=== PATIENT | female | born 1995 | race Caucasian/White ===

== ENCOUNTER 2018-01-03 00:26 | Inpatient (IN) | payer MEDICAID ==
[2018-01-03] MEDS ORDERED: Misoprostol 25 MCG (1/4 of 100 MCG) Tab PO PRN (00:37)
[2018-01-03] MEDS ORDERED: Water For Irrigation,Sterile 1,000 ML Container IRR PRN (00:37)
[2018-01-03] MEDS ORDERED: Sodium Chloride 0.9% 2.5 ML Syringe FLUSH PRN (00:37)
[2018-01-03] MEDS ORDERED: Terbutaline 1 MG/ML SDV SUBCUT PRN (00:37)
[2018-01-03] MEDS ORDERED: Lidocaine 1% 50 ML MDV INJECT PRN (00:37)
[2018-01-03] MEDS ORDERED: Tranexamic Acid 1,000 MG in Sodium Chloride 0.9% 100 ML IV PRN (00:37)
[2018-01-03] MEDS ORDERED: Sodium Chloride 0.9% 10 ML Syringe FLUSH PRN (00:37)
[2018-01-03] MEDS ORDERED: Misoprostol 25 MCG (1/4 of 100 MCG) Tab VAG PRN (00:37)
[2018-01-03] MEDS ORDERED: Methylergonovine 0.2 MG/1 ML Amp IM PRN (00:37)
[2018-01-03] MEDS ORDERED: Nalbuphine 10 MG/1 ML Vial IVPUSH PRN (00:37)
[2018-01-03] MEDS ORDERED: Misoprostol 200 MCG Tab PO PRN (00:37)
[2018-01-03] MEDS ORDERED: Carboprost Tromethamine 250 MCG/1 ML Amp IM PRN (00:37)
[2018-01-03] MEDS ORDERED: hydrOXYzine Pamoate 25 MG Cap PO PRN (00:43)
[2018-01-03] MEDS ORDERED: Oxytocin/0.9 % Sodium Chloride 30 UNIT/500 ML BAG IV SCH ×2 (00:45)
--- NOTE | 2018-01-03 00:56 | PCM.LDHP ---
L&D History of Present Illness - General Date of Service: 01/03/18 Admit Problem/Dx: Patient Status Order with Admit Dx/Problem 01/03/18 00:37 Patient Status [ADT] Routine Admission Diagnosis/Problem Admission Diagnosis/Problem Source of Information: Patient History Limitations: Reports: No Limitations - History of Present Illness Improves with: Reports: None Worsens with: Reports: None Associated Symptoms: Reports: N H&P Review of Systems - Review of Systems: Review Of Systems: See Below General: Reports: No Symptoms HEENT: Reports: No Symptoms Pulmonary: Reports: No Symptoms Cardiovascular: Reports: No Symptoms Gastrointestinal: Reports: No Symptoms Genitourinary: Reports: No Symptoms Musculoskeletal: Reports: No Symptoms Skin: Reports: No Symptoms Psychiatric: Reports: No Symptoms Neurological: Reports: No Symptoms Hematologic/Lymphatic: Reports: No Symptoms Immunologic: Reports: No Symptoms L&D Exam - Exam Exam: See Below - Vital Signs Weight: 79.379 kg - OB Specific Fundal Height In cm: 39 Contraction Intensity: Mild Movement: Active Heart Tones: Present Presentation: Vertex - Bianchi Score Bianchi Score Cervix Position: Midposition Bianchi Score Consistency: Medium Bianchi Score Effacement: 51-70% Bianchi Score Dilation: 1-2 cm Bianchi Score Infant's Station: -2 Bianchi Score Total: 6 - Exam General: Alert, Oriented HEENT: PERRLA, Conjunctiva Clear, EACs Clear, EOMI, Hearing Intact, Mucosa Moist & [place], Nares Patent, Normal Nasal Septum, Posterior Pharynx Clear, TMs Clear Neck: Supple, Trachea Midline Lungs: Clear to Auscultation, Normal Respiratory Effort Cardiovascular: Regular Rate, Regular Rhythm GI/Abdominal Exam: Normal Bowel Sounds, Soft, Non-Tender, No Organomegaly, No Distention, No Abnormal Bruit, No Mass, Pelvis Stable Rectal Exam: Normal Exam, Normal Rectal Tone Genitourinary: Normal external exam, Normal bimanual exam, Normal speculum exam Back Exam: Normal Inspection, Full Range of Motion Extremities: Normal Inspection, Normal Range of Motion, Non-Tender, No Pedal Edema, Normal Capillary Refill Skin: Warm, Dry, Intact Neurological: Cranial Nerves Intact, Reflexes Equal Bilateral Psychiatric: Alert, Normal Affect, Normal Mood Problem List Initiated/Reviewed/Updated: Yes Orders Last 24hrs: Active Orders 24 hr Category Date Time Status Patient Status [ADT] Routine ADT 01/03/18 00:37 Active Bedrest Bathroom Privileges [RC] ASDIRECTED Care 01/03/18 00:37 Active Communication Order [RC] ASDIRECTED Care 01/03/18 00:37 Active Communication Order [RC] ASDIRECTED Care 01/03/18 00:37 Active Communication Order [RC] ASDIRECTED Care 01/03/18 00:37 Active Heart Tones [RC] CONTINUOUS Care 01/03/18 00:37 Active Non Stress Test [RC] PER UNIT ROUTINE Care 01/03/18 00:37 Active May Shower [RC] ASDIRECTED Care 01/03/18 00:37 Active Notify Provider [RC] PRN Care 01/03/18 00:37 Active Notify Provider [RC] PRN Care 01/03/18 00:37 Active Notify Provider [RC] PRN Care 01/03/18 00:37 Active Notify Provider [RC] STAT Care 01/03/18 00:37 Active Oxygen Therapy [RC] ASDIRECTED Care 01/03/18 00:37 Active Up ad Milena [RC] ASDIRECTED Care 01/03/18 00:37 Active Vaginal Exam [RC] PRN Care 01/03/18 00:37 Active Vaginal Exam [RC] PRN Care 01/03/18 00:37 Active Vital Signs [RC] PER UNIT ROUTINE Care 01/03/18 00:37 Active Vital Signs [RC] PER UNIT ROUTINE Care 01/03/18 00:37 Active Regular Diet [DIET] Diet 01/03/18 Breakfast Active CBC W/O DIFF,HEMOGRAM [HEME] Routine Lab 01/03/18 00:37 Ordered TYPE AND SCREEN [BBK] Routine Lab 01/03/18 00:37 Ordered Carboprost Tromethamine [Hemabate DS] Med 01/03/18 00:37 Active 250 mcg IM ASDIRECTED PRN Lactated Ringers [Ringers, Lactated] 1,000 ml Med 01/03/18 00:45 Active IV ASDIRECTED Lidocaine 1% [Xylocaine 1%] Med 01/03/18 00:37 Active 50 ml INJECT .ONCE PRN Methylergonovine [Methergine] Med 01/03/18 00:37 Active 0.2 mg IM ASDIRECTED PRN Misoprostol [Cytotec] Med 01/03/18 00:37 Active 200 mcg PO .ONCE PRN Misoprostol [Cytotec] Med 01/03/18 00:37 Active 25 mcg PO Q4H PRN Misoprostol [Cytotec] Med 01/03/18 00:37 Active 25 mcg VAG Q4H PRN Nalbuphine [Nubain] Med 01/03/18 00:37 Active 10 mg IVPUSH ASDIRECTED PRN Oxytocin/0.9 % Sodium Chloride [Oxytocin 30 Unit/500 ML Med 01/03/18 00:45 Active -NS] 30 unit in 500 ml IV ASDIRECTED Oxytocin/0.9 % Sodium Chloride [Oxytocin 30 Unit/500 ML Med 01/03/18 00:45 Active -NS] 30 unit in 500 ml IV TITRATE Sodium Chloride 0.9% [Saline Flush] Med 01/03/18 00:37 Active 10 ml FLUSH ASDIRECTED PRN Sodium Chloride 0.9% [Saline Flush] Med 01/03/18 00:37 Active 2.5 ml FLUSH ASDIRECTED PRN Terbutaline [Brethine] Med 01/03/18 00:37 Active 0.25 mg SUBCUT ASDIRECTED PRN Tranexamic Acid [Cyklokapron] 1,000 mg Med 01/03/18 00:37 Active Sodium Chloride 0.9% [Normal Saline] 100 ml IV ONETIME Water For Irrigation,Sterile [Sterile Water for Med 01/03/18 00:37 Active Irrigation] 1,000 ml IRR ASDIRECTED PRN hydrOXYzine Pamoate [Vistaril] Med 01/03/18 00:43 Active 50 mg PO BEDTIME PRN Scalp Electrode [WOMSER] Per Unit Routine Oth 01/03/18 00:37 Ordered Medication Administration Instruction [OM.PC] Q3H Oth 01/03/18 00:45 Ordered Peripheral IV Insertion Adult [OM.PC] Routine Oth 01/03/18 00:37 Ordered Resuscitation Status Routine Resus Stat 01/03/18 00:37 Ordered Medication Orders Carboprost Tromethamine (Hemabate Ds) 250 mcg IM ASDIRECTED PRN PRN Reason: Post Hemorrhage Hydroxyzine Pamoate (Vistaril) 50 mg PO BEDTIME PRN PRN Reason: Sleep Lactated Ringer's (Ringers, Lactated) 1,000 mls @ 150 mls/hr IV ASDIRECTED JULIANA Oxytocin/Sodium Chloride (Oxytocin 30 Unit/500 Ml-Ns) 30 unit in 500 mls @ 999 mls/hr IV ASDIRECTED JULIANA Oxytocin/Sodium Chloride (Oxytocin 30 Unit/500 Ml-Ns) 30 unit in 500 mls @ 2 mls/hr IV TITRATE JULIANA; 2 MUNITS/MIN PRN Reason: Protocol Tranexamic Acid 1,000 mg/ (Sodium Chloride) 110 mls @ 600 mls/hr IV ONETIME PRN PRN Reason: Bleeding Lidocaine HCl (Xylocaine 1%) 50 ml INJECT .ONCE PRN PRN Reason: Laceration repair Methylergonovine Maleate (Methergine) 0.2 mg IM ASDIRECTED PRN PRN Reason: Post Hemorrhage Misoprostol (Cytotec) 200 mcg PO .ONCE PRN PRN Reason: Post Hemorrhage Misoprostol (Cytotec) 25 mcg VAG Q4H PRN PRN Reason: Cervical Ripening Misoprostol (Cytotec) 25 mcg PO Q4H PRN PRN Reason: Cervical Ripening Nalbuphine HCl (Nubain) 10 mg IVPUSH ASDIRECTED PRN PRN Reason: Pain (severe 7-10) Sodium Chloride (Saline Flush) 10 ml FLUSH ASDIRECTED PRN PRN Reason: Keep Vein Open Sodium Chloride (Saline Flush) 2.5 ml FLUSH ASDIRECTED PRN PRN Reason: Keep Vein Open Sterile Water (Sterile Water For Irrigation) 1,000 ml IRR ASDIRECTED PRN PRN Reason: delivery Terbutaline Sulfate (Brethine) 0.25 mg SUBCUT ASDIRECTED PRN PRN Reason: Tacysystole Assessment/Plan Comment:: Term admitted for elective induction.
[2018-01-03] MEDS: Lactated Ringers 1,000 ML IV SCH ×2 (09:48→10:41)
[2018-01-03] MEDS ORDERED: fentaNYL 100 MCG/2 ML SDV ONE (10:12)
--- NOTE | 2018-01-03 10:41 | PCM.PREANE ---
Preanesthetic Assessment - Anesthesia/Transfusion/Family Hx Anesthesia History: Prior Anesthesia Without Reaction Transfusion History: No Prior Transfusion(s) - Review of Systems General: No Symptoms Pulmonary: No Symptoms Cardiovascular: No Symptoms Gastrointestinal: No Symptoms Neurological: No Symptoms Other: Reports: None - Physical Assessment NPO Status Date: 01/03/18 NPO Status Time: 10:39 (sips/chips) Height: 5 ft 4 in Weight: 175 lb ASA Class: 2 Mental Status: Alert & Oriented x3 Airway Class: Mallampati = 2 Dentition: Reports: Normal Dentition ROM/Head Extension: Full Lungs: Clear to Auscultation, Normal Respiratory Effort Cardiovascular: Regular Rate, Regular Rhythm - Lab Values: Laboratory Last Values WBC 10.37 K/uL (4.0-11.0) 01/03/18 01:17 RBC 4.00 M/uL (4.30-5.90) L 01/03/18 01:17 Hgb 10.6 g/dL (12.0-16.0) L 01/03/18 01:17 Hct 31.9 % (36.0-46.0) L 01/03/18 01:17 MCV 79.8 fL (80.0-98.0) L 01/03/18 01:17 MCH 26.5 pg (27.0-32.0) L 01/03/18 01:17 MCHC 33.2 g/dL (31.0-37.0) 01/03/18 01:17 RDW Std Deviation 39.3 fl (28.0-62.0) 01/03/18 01:17 RDW Coeff of Manjeet 14 % (11.0-15.0) 01/03/18 01:17 Plt Count 255 K/uL (150-400) 01/03/18 01:17 MPV 10.60 fL (7.40-12.00) 01/03/18 01:17 Blood Type A POSITIVE 01/03/18 01:17 Antibody Screen NEGATIVE 01/03/18 01:17 - Allergies Allergies/Adverse Reactions: Allergies Allergy/AdvReac Type Severity Reaction Status Date / Time No Known Allergies Allergy Verified 01/03/18 01:55 - Blood Blood Available: No Product(s) Available: None - Anesthesia Plan Free Text/Narrative:: Labor Epidural - Acknowledgements Anesthesia Type Planned: Epidural Pt an Appropriate Candidate for the Planned Anesthesia: Yes Alternatives and Risks of Anesthesia Discussed w Pt/Guardian: Yes Pt/Guardian Understands and Agrees with Anesthesia Plan: Yes PreAnesthesia 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: , Spontaneous Musculoskeletal History: Reports: Other (See Below) (pt states some scoliosis - despite pt being small, her epidural space was rather deep (7cm)) - SUBSTANCE USE Smoking Status *Q: Former Smoker Tobacco Use Within Last Twelve Months: No Second Hand Smoke Exposure: No Recreational Drug Use History: No - CURRENT (IN HOUSE) MEDS Current Meds: Current Medications Carboprost Tromethamine (Hemabate Ds) 250 mcg IM ASDIRECTED PRN PRN Reason: Post Hemorrhage Hydroxyzine Pamoate (Vistaril) 50 mg PO BEDTIME PRN PRN Reason: Sleep Lactated Ringer's (Ringers, Lactated) 1,000 mls @ 150 mls/hr IV ASDIRECTED JULIANA Last Admin: 01/03/18 09:48 Dose: 999 mls/hr Oxytocin/Sodium Chloride (Oxytocin 30 Unit/500 Ml-Ns) 30 unit in 500 mls @ 999 mls/hr IV ASDIRECTED JULIANA Oxytocin/Sodium Chloride (Oxytocin 30 Unit/500 Ml-Ns) 30 unit in 500 mls @ 2 mls/hr IV TITRATE JULIANA; 2 MUNITS/MIN PRN Reason: Protocol Tranexamic Acid 1,000 mg/ (Sodium Chloride) 110 mls @ 600 mls/hr IV ONETIME PRN PRN Reason: Bleeding Lidocaine HCl (Xylocaine 1%) 50 ml INJECT .ONCE PRN PRN Reason: Laceration repair Methylergonovine Maleate (Methergine) 0.2 mg IM ASDIRECTED PRN PRN Reason: Post Hemorrhage Misoprostol (Cytotec) 200 mcg PO .ONCE PRN PRN Reason: Post Hemorrhage Misoprostol (Cytotec) 25 mcg VAG Q4H PRN PRN Reason: Cervical Ripening Last Admin: 01/03/18 01:55 Dose: 25 mcg Misoprostol (Cytotec) 25 mcg PO Q4H PRN PRN Reason: Cervical Ripening Last Admin: 01/03/18 01:56 Dose: 25 mcg Nalbuphine HCl (Nubain) 10 mg IVPUSH ASDIRECTED PRN PRN Reason: Pain (severe 7-10) Sodium Chloride (Saline Flush) 10 ml FLUSH ASDIRECTED PRN PRN Reason: Keep Vein Open Sodium Chloride (Saline Flush) 2.5 ml FLUSH ASDIRECTED PRN PRN Reason: Keep Vein Open Sterile Water (Sterile Water For Irrigation) 1,000 ml IRR ASDIRECTED PRN PRN Reason: delivery Terbutaline Sulfate (Brethine) 0.25 mg SUBCUT ASDIRECTED PRN PRN Reason: Tacysystole Discontinued Medications Fentanyl (Sublimaze) Confirm Administered Dose 100 mcg .ROUTE .STK-MED ONE Stop: 01/03/18 10:13 Fentanyl/Bupivacaine HCl (Bfongajf-Ekozi-Mf 2 Mcg/Ml-0.125%) Confirm Administered Dose 100 mls @ as directed EP .STK-MED ONE Stop: 01/03/18 10:13
[2018-01-03] MEDS ORDERED: Ibuprofen 400 MG Tab PO PRN (15:16)
[2018-01-03] MEDS ORDERED: Witch Hazel Medicated Pads 40/Jar TOP PRN (15:16)
[2018-01-03] MEDS ORDERED: Docusate Sodium 100 MG Cap PO PRN (15:16)
[2018-01-03] MEDS ORDERED: oxyCODONE 5 MG Tab PO PRN (15:16)
[2018-01-03] MEDS ORDERED: Benzocaine/Menthol 20%-0.5% Spray 78 GM Cannister TOP PRN (15:16)
[2018-01-03] MEDS ORDERED: Lanolin 100% Cream 7 GM Tube TOP PRN (15:16)
[2018-01-03] MEDS ORDERED: Bisacodyl 10 MG Supp RECTAL PRN (15:16)
[2018-01-03] MEDS ORDERED: Acetaminophen 500 MG Tab PO PRN ×2 (15:16)
--- NOTE | 2018-01-03 17:11 | PCM.DEL ---
L & D Note - General Info Date of Service: 01/03/18 Mother's Due Date: 12/30/17 - Delivery Note Cervical Ripening Method: Misoprostil Delivery Outcome: Livebirth Delivery Method: Spontaneous Vaginal Delivery-Single Delivery Mode: Spontaneous Presentation: Vertex Nuchal Cord: None Anesthesia Type: Epidural Amniotic Fluid Description: Meconium Stained Episiotomy Type: None Laceration: None Placenta: Intact, Spontaneous Cord: 3 Vessels Estimated Blood Loss: 100 Resuscitation Needed: No Score 1 min: 9 Score 5 min: 9 Second Stage Interventions: Reports: Pushing Effectively, Pushing, Pulls Own Legs Back Induction Criteria - Induction Gestational Age >/= 39 wks: Yes Estimated Pelvis: Reports: Adequate Reassuring Monitoring Strip: Yes Absence of Tachy Systole: Yes - General Info Admission Dx/Problem (Free Text): Patient Status Order with Admit Dx/Problem 01/03/18 00:37 Patient Status [ADT] Routine Admission Diagnosis/Problem Admission Diagnosis/Problem Functional Status: Reports: Pain Controlled, Tolerating Diet - Review of Systems General: Reports: No Symptoms HEENT: Reports: No Symptoms Pulmonary: Reports: No Symptoms Cardiovascular: Reports: No Symptoms Gastrointestinal: Reports: No Symptoms Genitourinary: Reports: No Symptoms Musculoskeletal: Reports: No Symptoms Skin: Reports: No Symptoms Neurological: Reports: No Symptoms Psychiatric: Reports: No Symptoms - Patient Data Weight - Most Recent: 79.379 kg Lab Results Last 24 Hours: Laboratory Results - last 24 hr 01/03/18 01/03/18 Range/Units 01:17 01:17 WBC 10.37 (4.0-11.0) K/uL RBC 4.00 L (4.30-5.90) M/uL Hgb 10.6 L (12.0-16.0) g/dL Hct 31.9 L (36.0-46.0) % MCV 79.8 L (80.0-98.0) fL MCH 26.5 L (27.0-32.0) pg MCHC 33.2 (31.0-37.0) g/dL RDW Std Deviation 39.3 (28.0-62.0) fl RDW Coeff of Manjeet 14 (11.0-15.0) % Plt Count 255 (150-400) K/uL MPV 10.60 (7.40-12.00) fL Blood Type A POSITIVE Antibody Screen NEGATIVE Med Orders - Current: Current Medications Acetaminophen (Tylenol Extra Strength) 500 mg PO Q4H PRN PRN Reason: Pain Acetaminophen (Tylenol Extra Strength) 1,000 mg PO Q4H PRN PRN Reason: Pain Benzocaine/Menthol (Dermoplast Pain Relief 20%-0.5% Bailey) 78 gm TOP ASDIRECTED PRN PRN Reason: Perineal Comfort Measure Bisacodyl (Dulcolax) 10 mg RECTAL .ONCE PRN PRN Reason: Constipation Docusate Sodium (Colace) 100 mg PO BID PRN PRN Reason: Constipation Emollient Ointment (Lansinoh Hpa) 0 gm TOP ASDIRECTED PRN PRN Reason: Sore Nipples Ibuprofen (Motrin) 400 mg PO Q4H PRN PRN Reason: Pain Ibuprofen (Motrin) 800 mg PO Q6H PRN PRN Reason: Pain Oxycodone HCl (Oxycodone) 5 mg PO Q2H PRN PRN Reason: Pain Witch Bianka (Tucks) 1 pad TOP ASDIRECTED PRN PRN Reason: comfort care Discontinued Medications Carboprost Tromethamine (Hemabate Ds) 250 mcg IM ASDIRECTED PRN PRN Reason: Post Hemorrhage Fentanyl (Sublimaze) Confirm Administered Dose 100 mcg .ROUTE .STK-MED ONE Stop: 01/03/18 10:13 Hydroxyzine Pamoate (Vistaril) 50 mg PO BEDTIME PRN PRN Reason: Sleep Lactated Ringer's (Ringers, Lactated) 1,000 mls @ 150 mls/hr IV ASDIRECTED [facility] Last Admin: 01/03/18 10:41 Dose: 150 mls/hr Oxytocin/Sodium Chloride (Oxytocin 30 Unit/500 Ml-Ns) 30 unit in 500 mls @ 999 mls/hr IV ASDIRECTED [facility] Oxytocin/Sodium Chloride (Oxytocin 30 Unit/500 Ml-Ns) 30 unit in 500 mls @ 2 mls/hr IV TITRATE JULIANA; 2 MUNITS/MIN PRN Reason: Protocol Tranexamic Acid 1,000 mg/ (Sodium Chloride) 110 mls @ 600 mls/hr IV ONETIME PRN PRN Reason: Bleeding Fentanyl/Bupivacaine HCl (Ojekijfb-Eopbe-Lw 2 Mcg/Ml-0.125%) Confirm Administered Dose 100 mls @ as directed EP .STK-MED ONE Stop: 01/03/18 10:13 Lidocaine HCl (Xylocaine 1%) 50 ml INJECT .ONCE PRN PRN Reason: Laceration repair Methylergonovine Maleate (Methergine) 0.2 mg IM ASDIRECTED PRN PRN Reason: Post Hemorrhage Misoprostol (Cytotec) 200 mcg PO .ONCE PRN PRN Reason: Post Hemorrhage Misoprostol (Cytotec) 25 mcg VAG Q4H PRN PRN Reason: Cervical Ripening Last Admin: 01/03/18 01:55 Dose: 25 mcg Misoprostol (Cytotec) 25 mcg PO Q4H PRN PRN Reason: Cervical Ripening Last Admin: 01/03/18 01:56 Dose: 25 mcg Nalbuphine HCl (Nubain) 10 mg IVPUSH ASDIRECTED PRN PRN Reason: Pain (severe 7-10) Sodium Chloride (Saline Flush) 10 ml FLUSH ASDIRECTED PRN PRN Reason: Keep Vein Open Sodium Chloride (Saline Flush) 2.5 ml FLUSH ASDIRECTED PRN PRN Reason: Keep Vein Open Sterile Water (Sterile Water For Irrigation) 1,000 ml IRR ASDIRECTED PRN PRN Reason: delivery Terbutaline Sulfate (Brethine) 0.25 mg SUBCUT ASDIRECTED PRN PRN Reason: Tacysystole - Exam General: Alert, Oriented, Cooperative, No Acute Distress Lungs: Normal Respiratory Effort GI/Abdominal Exam: Soft, Non-Tender (Female) Exam: Normal External Exam, Normal Bimanual Exam, Vaginal Bleeding Back Exam: Full Range of Motion Extremities: Normal Range of Motion, Non-Tender, No Pedal Edema, Normal Capillary Refill Skin: Warm, Dry, Intact Neurological: No New Focal Deficit, Normal Speech, Normal Tone Psy/Mental Status: Alert, Normal Affect, Normal Mood - Problem List & Annotations (1) Supervision of normal IUP (intrauterine ) in primigravida SNOMED Code(s): 73780920, 450114938, 063815210 Code(s): Z34.00 - ENCNTR FOR SUPRVSN OF NORMAL FIRST , UNSP TRIMESTER Status: Acute Current Visit: Yes Qualifiers: Trimester: third trimester Qualified Code(s): Z34.03 - Encounter for supervision of normal first , third trimester (2) Post-dates SNOMED Code(s): 93486705 Code(s): O48.0 - POST-TERM Status: Acute Priority: High Current Visit: Yes Qualifiers: Post-term type: 40-42 weeks gestation Qualified Code(s): O48.0 - Post-term (3) (normal spontaneous vaginal delivery) SNOMED Code(s): 00845207 Code(s): O80 - ENCOUNTER FOR FULL-TERM UNCOMPLICATED DELIVERY Status: Acute Priority: High Current Visit: Yes - Problem List Review Problem List Initiated/Reviewed/Updated: Yes - My Orders Last 24 Hours: My Active Orders 01/03/18 15:16 May Shower [RC] ASDIRECTED Up ad Milena [RC] ASDIRECTED Vital Signs [RC] PER UNIT ROUTINE Acetaminophen [Tylenol Extra Strength] 1,000 mg PO Q4H PRN Acetaminophen [Tylenol Extra Strength] 500 mg PO Q4H PRN Benzocaine/Menthol [Dermoplast Pain Relief 20%-0.5% Bailey] 78 gm TOP ASDIRECTED PRN Bisacodyl [Dulcolax] 10 mg RECTAL .ONCE PRN Docusate Sodium [Colace] 100 mg PO BID PRN Ibuprofen [Motrin] 400 mg PO Q4H PRN Ibuprofen [Motrin] 800 mg PO Q6H PRN Lanolin [Lansinoh HPA] See Dose Instructions TOP ASDIRECTED PRN Witch Bianka [Tucks] 1 pad TOP ASDIRECTED PRN oxyCODONE 5 mg PO Q2H PRN Assess Lochia [WOMSER] Per Unit Routine Assess Uterine Involution [WOMSER] Per Unit Routine Peripheral IV Discontinue [OM.PC] Routine Resuscitation Status Routine 01/03/18 15:18 Patient Status [ADT] Routine 01/03/18 Dinner Regular Diet [DIET] - Plan Plan:: Term admitted for elective induction. Delivery A: of viable male over intact perineum, APGARS 9/9 Wt: 7lb 11oz, EBL 100cc , intact perineum, mother and baby bonding well for recovery. Stable condition. P: Routine pp plan of care.
--- NOTE | 2018-01-03 17:44 | PCM48HPAN ---
Post Anesthesia Note - EVALUATION WITHIN 48HRS OF ANESTHETIC Vital Signs in Normal Range: Yes Patient Participated in Evaluation: Yes Respiratory Function Stable: Yes Airway Patent: Yes Cardiovascular Function Stable: Yes Hydration Status Stable: Yes Pain Control Satisfactory: Yes Nausea and Vomiting Control Satisfactory: Yes Mental Status Recovered: Yes
[2018-01-04] MEDS: Ibuprofen 800 MG Tab PO PRN ×2 (06:38→15:55)
--- NOTE | 2018-01-04 08:16 | PCM.DCSUM1 ---
Discharge Summary - Hospital Course Free Text/Narrative:: Discharge home with . Follow up 6 weeks post or sooner if needed. - Discharge Data Discharge Date: 01/04/18 Discharge Disposition: Home, Self-Care 01 Condition: Good - Discharge Diagnosis/Problem(s) (1) Supervision of normal IUP (intrauterine ) in primigravida SNOMED Code(s): 46824682, 021798586, 698325004 ICD Code: Z34.00 - ENCNTR FOR SUPRVSN OF NORMAL FIRST , UNSP TRIMESTER Status: Acute Current Visit: Yes Qualifiers: Trimester: third trimester Qualified Code(s): Z34.03 - Encounter for supervision of normal first , third trimester (2) Post-dates SNOMED Code(s): 71856179 ICD Code: O48.0 - POST-TERM Status: Acute Priority: High Current Visit: Yes Qualifiers: Post-term type: 40-42 weeks gestation Qualified Code(s): O48.0 - Post-term (3) (normal spontaneous vaginal delivery) SNOMED Code(s): 21701481 ICD Code: O80 - ENCOUNTER FOR FULL-TERM UNCOMPLICATED DELIVERY Status: Acute Priority: High Current Visit: Yes - Patient Instructions Diet: Usual Diet as Tolerated Activity: As Tolerated, No Strenuous Activities, Rest and Relax Today Driving: May Drive Today Showering/Bathing: May Shower Notify Provider of: Fever, Increased Pain, Swelling and Redness, Nausea and/or Vomiting Other/Special Instructions: Discharge home with infant. Follow up 6 weeks post or sooner if needed. - Discharge Plan Referrals: [facility] [Outside] Anabell Dave CNM [Mid-] - 02/20/18 10:45 am - General Info Date of Service: 01/04/18 Functional Status: Reports: Pain Controlled, Tolerating Diet, Ambulating, Urinating - Review of Systems General: Reports: No Symptoms HEENT: Reports: No Symptoms Pulmonary: Reports: No Symptoms Cardiovascular: Reports: No Symptoms Gastrointestinal: Reports: No Symptoms Genitourinary: Reports: No Symptoms Musculoskeletal: Reports: No Symptoms Skin: Reports: No Symptoms Neurological: Reports: No Symptoms Psychiatric: Reports: No Symptoms - Patient Data Vitals - Most Recent: Last Vital Signs Temp 36.6 C 01/04/18 05:40 Pulse 102 H 01/04/18 05:40 Resp 17 01/04/18 05:40 BP 126/65 01/04/18 05:40 Pulse Ox 96 01/04/18 05:40 Weight - Most Recent: 79.379 kg Med Orders - Current: Current Medications Acetaminophen (Tylenol Extra Strength) 500 mg PO Q4H PRN PRN Reason: Pain Acetaminophen (Tylenol Extra Strength) 1,000 mg PO Q4H PRN PRN Reason: Pain Benzocaine/Menthol (Dermoplast Pain Relief 20%-0.5% [place]) 78 gm TOP ASDIRECTED PRN PRN Reason: Perineal Comfort Measure Bisacodyl (Dulcolax) 10 mg RECTAL .ONCE PRN PRN Reason: Constipation Docusate Sodium (Colace) 100 mg PO BID PRN PRN Reason: Constipation Emollient Ointment (Lansinoh Hpa) 0 gm TOP ASDIRECTED PRN PRN Reason: Sore Nipples Ibuprofen (Motrin) 400 mg PO Q4H PRN PRN Reason: Pain Ibuprofen (Motrin) 800 mg PO Q6H PRN PRN Reason: Pain Last Admin: 01/04/18 06:38 Dose: 800 mg Oxycodone HCl (Oxycodone) 5 mg PO Q2H PRN PRN Reason: Pain Witch Bianka (Tucks) 1 pad TOP ASDIRECTED PRN PRN Reason: comfort care Discontinued Medications Carboprost Tromethamine (Hemabate Ds) 250 mcg IM ASDIRECTED PRN PRN Reason: Post Hemorrhage Fentanyl (Sublimaze) Confirm Administered Dose 100 mcg .ROUTE .STK-MED ONE Stop: 01/03/18 10:13 Hydroxyzine Pamoate (Vistaril) 50 mg PO BEDTIME PRN PRN Reason: Sleep Lactated Ringer's (Ringers, Lactated) 1,000 mls @ 150 mls/hr IV ASDIRECTED [facility] Last Admin: 01/03/18 10:41 Dose: 150 mls/hr Oxytocin/Sodium Chloride (Oxytocin 30 Unit/500 Ml-Ns) 30 unit in 500 mls @ 999 mls/hr IV ASDIRECTED [facility] Last Admin: 01/03/18 14:59 Dose: 999 mls/hr Oxytocin/Sodium Chloride (Oxytocin 30 Unit/500 Ml-Ns) 30 unit in 500 mls @ 2 mls/hr IV TITRATE JULIANA; 2 MUNITS/MIN PRN Reason: Protocol Tranexamic Acid 1,000 mg/ (Sodium Chloride) 110 mls @ 600 mls/hr IV ONETIME PRN PRN Reason: Bleeding Fentanyl/Bupivacaine HCl (Wcppmcyc-Yujhp-Ak 2 Mcg/Ml-0.125%) Confirm Administered Dose 100 mls @ as directed EP .[facility]-MED ONE Stop: 01/03/18 10:13 Lidocaine HCl (Xylocaine 1%) 50 ml INJECT .ONCE PRN PRN Reason: Laceration repair Methylergonovine Maleate (Methergine) 0.2 mg IM ASDIRECTED PRN PRN Reason: Post Hemorrhage Misoprostol (Cytotec) 200 mcg PO .ONCE PRN PRN Reason: Post Hemorrhage Misoprostol (Cytotec) 25 mcg VAG Q4H PRN PRN Reason: Cervical Ripening Last Admin: 01/03/18 01:55 Dose: 25 mcg Misoprostol (Cytotec) 25 mcg PO Q4H PRN PRN Reason: Cervical Ripening Last Admin: 01/03/18 01:56 Dose: 25 mcg Nalbuphine HCl (Nubain) 10 mg IVPUSH ASDIRECTED PRN PRN Reason: Pain (severe 7-10) Sodium Chloride (Saline Flush) 10 ml FLUSH ASDIRECTED PRN PRN Reason: Keep Vein Open Sodium Chloride (Saline Flush) 2.5 ml FLUSH ASDIRECTED PRN PRN Reason: Keep Vein Open Sterile Water (Sterile Water For Irrigation) 1,000 ml IRR ASDIRECTED PRN PRN Reason: delivery Terbutaline Sulfate (Brethine) 0.25 mg SUBCUT ASDIRECTED PRN PRN Reason: Tacysystole - Exam General: Reports: Alert, Oriented, Cooperative, No Acute Distress Lungs: Reports: Clear to Auscultation, Normal Respiratory Effort Cardiovascular: Reports: Regular Rate, Regular Rhythm, No Murmurs GI/Abdominal Exam: Soft, Non-Tender (Female) Exam: Vaginal Bleeding Back Exam: Reports: Full Range of Motion Extremities: Normal Range of Motion, Non-Tender, No Pedal Edema, Normal Capillary Refill Skin: Reports: Warm, Dry, Intact Neurological: Reports: No New Focal Deficit, Normal Speech, Normal Tone Psy/Mental Status: Reports: Alert, Normal Affect, Normal Mood *Q Meaningful Use (DIS) - VTE *Q VTE Criteria *Q: - Stroke *Q Stroke Criteria *Q: - AMI *Q AMI Criteria *Q:
== END 2018-01-04 17:30 | disposition home or self-care (01) | DRG 775 ==
LOC: MW.OBCHECK 00:26 → MW.OB 00:30 → MW.OBCHECK 00:37 → MW.OB 00:37 → OBSVTOIN 15:18
PROVIDERS: ADMIT Obstetrics & Gynecology; ATTEND Obstetrics & Gynecology
PROC: 10E0XZZ Delivery of Products of Conception, External Approach (ICD-10-PCS; principal; 2018-01-03)
PROC: 3E0P7VZ Introduction of Hormone into Female Reproductive, Via Natural or Artificial Opening (ICD-10-PCS; 2018-01-03)
DX: O77.0 Labor and delivery complicated by meconium in amniotic fluid (principal); O48.0 Post-term pregnancy; Z3A.40 40 weeks gestation of pregnancy; Z37.0 Single live birth
CPT/HCPCS: 36415; 51702; 59025; 59409; 85027; 86850; 86900; 86901; A9270-GY; J2590; J3010; J7120

== ENCOUNTER 2018-01-07 23:42 | Emergency (ER) | payer MEDICAID ==
[2018-01-08] MEDS ORDERED: Sodium Chloride 0.9% 500 ML IV ONE (00:27)
--- NOTE | 2018-01-08 00:27 | EDM.PDOC ---
ED HPI GENERAL MEDICAL PROBLEM - General Chief Complaint: Genitourinary Problem Stated Complaint: NO URGE TO USE RESTROOM Time Seen by Provider: 01/08/18 00:24 - History of Present Illness INITIAL COMMENTS - FREE TEXT/NARRATIVE: HISTORY AND PHYSICAL: History of present illness: Patient's a 22-year-old female is status post vaginal delivery on January 03 presents with a concern of urinary incontinence she states this has been basically constant since delivery she states she doesn't even realize it coming out she's had some abdominal and back soreness that has improved slightly she denies any weakness or sensory complaints inferiorly or otherwise. Review of systems: As per history of present illness and below otherwise all systems reviewed and negative. Past medical history: As per history of present illness and as reviewed below otherwise noncontributory. Surgical history: As per history of present illness and as reviewed below otherwise noncontributory. Social history: No reported history of drug or alcohol abuse. Family history: As per history of present illness and as reviewed below otherwise noncontributory. Physical exam: HEENT: Atraumatic, normocephalic, pupils reactive, negative for conjunctival pallor or scleral icterus, mucous membranes moist, throat clear, neck supple, nontender, trachea midline. Lungs: Clear to auscultation, breath sounds equal bilaterally, chest nontender. Heart: S1S2, regular, negative for clicks, rubs, or JVD. Abdomen: Soft, nondistended, nontender. Negative for masses or hepatosplenomegaly. Negative for costovertebral tenderness. Pelvis: Stable nontender. Genitourinary: Deferred. Rectal: Deferred. Extremities: Atraumatic, negative for cords or calf pain. Neurovascular unremarkable. Neuro: Awake, alert, oriented. Cranial nerves II through XII unremarkable. Cerebellum unremarkable. Motor and sensory unremarkable throughout. Exam nonfocal. Diagnostics: CBC CMP UA urine culture Therapeutics: Normal saline 1 L bolus Impression: #1 urinary incontinence status post vaginal delivery 01/03/2018 Definitive disposition and diagnosis as appropriate pending reevaluation and review of above. hypogastric Pain Score (Numeric/FACES): 6 - Related Data Allergies Allergy/AdvReac Type Severity Reaction Status Date / Time No Known Allergies Allergy Verified 01/07/18 23:55 Home Meds: Home Meds . [No Known Home Meds] 01/07/18 [History] Past Medical History - Past Health History Medical/Surgical History: Denies Medical/Surgical History [employer] History: Reports: , Spontaneous Musculoskeletal History: Reports: Other (See Below) (pt states some scoliosis - despite pt being small, her epidural space was rather deep (7cm)) Social & Family History - Family History Family Medical History: Noncontributory - Tobacco Use Smoking Status *Q: Never Smoker Years of Tobacco use: 2 Packs/Tins Daily: 0.5 Used Tobacco, but Quit: Yes Month Tobacco Last Used: mar Second Hand Smoke Exposure: No - Caffeine Use Caffeine Use: Reports: Soda - Recreational Drug Use Recreational Drug Use: No ED ROS GENERAL - Review of Systems Review Of Systems: ROS reveals no pertinent complaints other than HPI. ED EXAM, GENERAL - Physical Exam Exam: See Below (See dictation) Course - Vital Signs Text/Narrative:: Case discussed with Dr. pepe who will see patient today for reevaluation. Last Recorded V/S: Last Vital Signs Temp 36.8 C 01/07/18 23:42 Pulse 89 01/08/18 02:11 Resp 18 01/08/18 02:11 BP 148/93 H 01/08/18 02:11 Pulse Ox 97 01/07/18 23:42 - Orders/Labs/Meds Orders: Active Orders 24 hr Category Date Time Status Lumbar Spine Comp wo Cont [MR] Stat Exams 01/08/18 00:24 Taken CULTURE URINE [RM] Stat Lab 01/08/18 00:10 Received Labs: Laboratory Tests 01/07/18 01/08/18 01/08/18 Range/Units 23:58 00:40 00:40 WBC 9.17 (4.0-11.0) K/uL RBC 4.33 (4.30-5.90) M/uL Hgb 11.2 L (12.0-16.0) g/dL Hct 34.5 L (36.0-46.0) % MCV 79.7 L (80.0-98.0) fL MCH 25.9 L (27.0-32.0) pg MCHC 32.5 (31.0-37.0) g/dL RDW Std Deviation 40.6 (28.0-62.0) fl RDW Coeff of Manjeet 14 (11.0-15.0) % Plt Count 314 (150-400) K/uL MPV 9.80 (7.40-12.00) fL Neut % (Auto) 62.5 (48.0-80.0) % Lymph % (Auto) 28.2 (16.0-40.0) % [place] % (Auto) 7.2 (0.0-15.0) % Eos % (Auto) 1.9 (0.0-7.0) % Baso % (Auto) 0.2 (0.0-1.5) % Neut # (Auto) 5.7 (1.4-5.7) K/uL Lymph # (Auto) 2.6 H (0.6-2.4) K/uL [place] # (Auto) 0.7 (0.0-0.8) K/uL Eos # (Auto) 0.2 (0.0-0.7) K/uL Baso # (Auto) 0.0 (0.0-0.1) K/uL Sodium 139 (136-146) mmol/L Potassium 3.9 (3.5-5.1) mmol/L Chloride 107 (98-110) mmol/L Carbon Dioxide 22 (21-31) mmol/L BUN 10 (6.0-23.0) mg/dL Creatinine 0.7 (0.6-1.5) mg/dL Est Cr Clr Drug Dosing 108.86 mL/min Estimated GFR (MDRD) > 60.0 ml/min Glucose 89 (60-110) mg/dL Calcium 9.6 (8.8-10.8) mg/dL Total Bilirubin 0.7 (0.1-1.5) mg/dL AST 7 (5-40) IU/L ALT 15 (8-54) IU/L Alkaline Phosphatase 152 H (40-150) Total Protein 6.8 (6.0-8.0) g/dL Albumin 3.5 (3.5-5.0) g/dL Globulin 3.3 (2.0-3.5) g/dL Albumin/Globulin Ratio 1.1 L (1.3-2.8) Urine Color YELLOW Urine Appearance CLEAR Urine pH 6.0 (5.0-8.0) Ur Specific [place] 1.015 (1.001-1.035) Urine Protein NEGATIVE (NEGATIVE) mg/dL Urine Glucose (UA) NEGATIVE (NEGATIVE) mg/dL Urine Ketones NEGATIVE (NEGATIVE) mg/dL Urine Occult Blood NEGATIVE (NEGATIVE) Urine Nitrite NEGATIVE (NEGATIVE) Urine Bilirubin NEGATIVE (NEGATIVE) Urine Urobilinogen 0.2 (<2.0) EU/dL Ur Leukocyte Esterase NEGATIVE (NEGATIVE) Urine RBC 0-1 (0-2/HPF) Urine WBC 0-3 (0-5/HPF) Ur Epithelial Cells OCCASIONAL (NONE-FEW) Urine Bacteria FEW (NEGATIVE) Meds: Medications Discontinued Medications Generic Name Dose Route Start Last Admin Trade Name Freq PRN Reason Stop Dose Admin Sodium Chloride 500 mls @ 999 mls/hr 01/08/18 00:27 01/08/18 00:43 Normal Saline IV 01/08/18 00:57 999 mls/hr STAT ONE Administration Ketorolac Tromethamine 30 mg 01/08/18 02:00 01/08/18 02:08 Toradol IM 01/08/18 02:01 Not Given ONETIME ONE Ketorolac Tromethamine 30 mg 01/08/18 02:07 01/08/18 02:08 Toradol IVPUSH 01/08/18 02:08 30 mg ONETIME ONE Administration Departure - Departure Time of Disposition: 03:11 Disposition: Home, Self-Care 01 Condition: Good Clinical Impression: Urinary incontinence - Discharge Information Instructions: Urinary Incontinence Referrals: [facility] [Primary Care Provider] - Forms: ED Department Discharge Additional Instructions: The following information is given to patients seen in the emergency department who are being discharged to home. This information is to outline your options for follow-up care. We provide all patients seen in our emergency department with a follow-up referral. The need for follow-up, as well as the timing and circumstances, are variable depending upon the specifics of your emergency department visit. If you don't have a primary care physician on staff, we will provide you with a referral. We always advise you to contact your personal physician following an emergency department visit to inform them of the circumstance of the visit and for follow-up with them and/or the need for any referrals to a consulting specialist. The emergency department will also refer you to a specialist when appropriate. This referral assures that you have the opportunity for followup care with a specialist. All of these measure are taken in an effort to provide you with optimal care, which includes your followup. Under all circumstances we always encourage you to contact your private physician who remains a resource for coordinating your care. When calling for followup care, please make the office aware that this follow-up is from your recent emergency room visit. If for any reason you are refused follow-up, please contact the [facility] emergency department at and asked to speak to the emergency department charge nurse. - My Orders Last 24 Hours: My Active Orders 01/08/18 00:10 CULTURE URINE [RM] Stat 01/08/18 00:24 Lumbar Spine Comp wo Cont [MR] Stat - Assessment/Plan Last 24 Hours: My Active Orders 01/08/18 00:10 CULTURE URINE [RM] Stat 01/08/18 00:24 Lumbar Spine Comp wo Cont [MR] Stat
[2018-01-08 01:05] LABS: CHLORIDE,CL 107 mmol/L (98-110); SODIUM,NA 139 mmol/L (136-146)
[2018-01-08] MEDS: Ketorolac 30 MG/ML SDV IM ONE ×2 (02:03→02:08)
[2018-01-08] MEDS ORDERED: Ketorolac 30 MG/ML SDV IVPUSH ONE (02:07)
--- NOTE | 2018-01-08 14:08 | MR ---
EXAM DATE: 01/07/18 PATIENT'S AGE: 22 Patient: LYN BELL Facility: [place], [place] Site . Site : 1995 Study: MRI Spine Lumbar [id number]/26/2018 1:57:43 AM Ordering Physician: Monica Reeder Final Report: INDICATION: 22-year-old female. transvaginal delivery January 03, 2018. Epidural anesthesia. Total loss of bladder function. TECHNIQUE: T1, T2 and STIR sagittal images with multilevel T1 and T2 axial acquisitions. FINDINGS: There is a mild lumbar scoliosis convex left. Conus is normal. Cauda equina is unremarkable. There is no epidural fluid collection. T11-12 through L3-4: Normal. L4-5: Central to right central protrusion mildly impinges L5. Foramina adequately patent. L5-S1: Disc desiccation, posterior disc bulge and dorsal annular fissuring without impingement. Foramina normally patent. Presacral tissues are normal. Sacral perineural cysts of no clinical significance. Bladder is moderately distended. Enlarged uterus is compatible post appearance. IMPRESSION: 1. Conus and cauda equina are unremarkable. No pathologic epidural fluid collection. 2. Central/right central protrusion at L4-5 contacts right L5 without convincing impingement. 3. Posterior disc bulge/annular fissuring L5-S1 without impingement. 4. Mild lumbar scoliosis is convex to the left. Dictated by Tima Chavez MD @ Jan 08 2018 8:31AM (Electronic Signature) Report Signed by Proxy. [email or web address]
== END 2018-01-08 03:25 | disposition home or self-care (01) ==
LOC: MW.ED 23:42
DX: O90.89 Other complications of the puerperium, not elsewhere classified (principal); R32 Unspecified urinary incontinence; Z87.891 Personal history of nicotine dependence
CPT/HCPCS: 72148; 80053; 81001; 85025; 87086; 96361; 96374; 99284; J1885; J7040; 99283